=== PATIENT | female | born 1980 | race African-American/Black ===

== ENCOUNTER 2018-03-24 18:30 | Emergency (ER) | payer OTHER ==
[~2018-03-24] VITALS: Ht 162.6 cm; Wt 59.0 kg
[~2018-03-24 18:30] MED LIST: ANTIVERT 12.512.5 MG PO; ROBITUSSIN COU237 ML PO; TYLENOL #31 TAB PO
[2018-03-24 18:36] VITALS: BP 132/71
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
--- NOTE | 2018-03-24 20:23 | RADIOLOGY REPORT ---
EXAMINATION: XR THORACIC SPINE CLINICAL INFORMATION: Trauma and pain COMPARISON: None TECHNIQUE: 2 views of the thoracic spine were obtained. FINDINGS: There is no fracture or bone destruction seen and the vertebral alignment is normal. There is no disc space narrowing. There is no abnormality of the paraspinal soft tissues. IMPRESSION: Unremarkable examination.
[2018-03-24] MEDS ORDERED: NAPROSYN500 M1 PO (20:32)
== END 2018-03-24 20:54 ==
LOC: ERH 18:30
DX: S20.229A Contusion of unspecified back wall of thorax, initial encounter (principal); Y04.8XXA Assault by other bodily force, initial encounter; Y92.9 Unspecified place or not applicable; Y93.9 Activity, unspecified
CPT/HCPCS: 72070; 81025